=== PATIENT | male | born 1960 | race Caucasian/White ===

== ENCOUNTER → 2017-03-30 | Day surgery (SDC) | payer BC ==
[~2017-03-30] MED LIST: BENAZEPRIL HCL40 MG PO; NISOLDIPINE30 MG PO
--- NOTE | ~2017-03-30 | OR ---
Unit #: [id number] #: [id number] Patient: CHARLOTTE PONCE [id number] [address] [place], [place] [address] [id number] MR#: [id number] NAME: CHARLOTTE PONCE ROOM: Date of Procedure: 03/30/2017 Admission Date: 03/30/2017 Surgeon: Reinier Brown M.D. : 1960 Attending Physician: Reinier Brown M.D. Referring Physician: Reinier Brown M.D. Primary Care Physician: Abbie Davis Aprn OPERATIVE REPORT PREOPERATIVE DIAGNOSIS Enlarging subcutaneous mass, left groin. POSTOPERATIVE DIAGNOSIS Enlarging sebaceous cyst, left groin. ANESTHESIA Versed 2.5 mg, Demerol 37.5 mg each IV push in divided dosages with continuous cardiac and O2 saturation monitoring. FINDINGS The area was consistent with a large sebaceous cyst. SPECIMENS Sent to pathology. COMPLICATIONS None apparent. CONDITION The patient tolerated the procedure well. INDICATIONS FOR PROCEDURE The patient is a 56-year-old white male, who presents at this time with enlarging subcutaneous mass of the left groin. He presents at this time for excision for pathologic diagnosis and treatment. DESCRIPTION OF PROCEDURE After obtaining informed consent as well as receiving preoperative antibiotics, the patient was brought to the operating room and after adequate IV sedation, had the left groin prepped and draped in a sterile fashion. An elliptical incision was made with a knife over the subcutaneous mass. It was taken down through the subdermal tissue to the level of the lesion. It was consistent with a large sebaceous cyst. It was dissected free with blunt and sharp dissection using the tenotomy scissors and an electrocautery for hemostasis. The wound was irrigated. Hemostasis was obtained with the Bovie. The deep tissues were reapproximated with interrupted 3-0 Vicryl suture and the skin was closed with 4-0 Vicryl subcuticular stitch. Benzoin and Steri-Strips were applied over the wound in an occlusive manner followed by dry dressing and a Tegaderm dressing. Needle counts, sponge counts, and instrument counts Unit #: [id number] #: [id number] Patient: CHARLOTTE PONCE were all correct as reported by the scrub nurse x2. The patient went from the operating room to recovery room in stable condition. Dictated by... Krystal Berger/tadeo TD: 03/31/2017 00:54 JOB #: [id number] CC: [facility] OPERATIVE REPORT Page 1 of 1 X Reinier Brown MD X PROCEDURE OPERATIVE NOTE
== END | disposition home or self-care (01) ==
LOC: CSUR 05:39
DX: L72.0 Epidermal cyst (principal); E11.9 Type 2 diabetes mellitus without complications; I10 Essential (primary) hypertension; Z79.899 Other long term (current) drug therapy; Z98.890 Other specified postprocedural states
CPT/HCPCS: 82947; 88304; J0690; J2175; J2250